=== PATIENT | male | born 1975 | race Caucasian/White ===

== ENCOUNTER 2021-08-12 10:38 | Outpatient (CLI) | payer OTHER ==
[2021-08-12 11:31] VITALS: BP 126/72
--- NOTE | 2021-08-12 11:31 | SLEEP CARE CONSULTATION ---
Information from patient questionnaire entered by Lorraine Amezquita. I have reviewed and concur with the information entered by Lorraine Amezquita. This document represents the service I personally performed and the decisions made by me, Catherine Delgado ARNP. History of Present Illness Service Date and Time: 08/12/2021 1038 Reason for Visit: New patient Chief Complaint: reports: Unrefreshed sleep, Snoring, Observed pauses in breathing, Fatigue Date of Onset: 1992 Usual bedtime: Varies due to schedule Time it takes to fall asleep: 5-10 minutes Snores at night: Yes Observed to quit breathing while asleep: Yes Sleeps alone due to snoring: Yes Number of times waking at night: 1 Reasons for waking at night: reports: Bathroom, Other (unknown reason; sometimes startled awake) Toss, Turn, or Twitch while sleeping: Yes (at beginning and end sleeping) Recalls having dreams: Yes Usually gets out of bed at: varies Feels refreshed in the morning: No Morning headache: No Sleepy or fatigued during the day: Yes Ever fallen asleep while driving: No Takes day naps: No Prior sleep studies: No Additional HPI information: I had the pleasure of seeing BARRY TSAI today regarding the possibility of him having a sleep disorder. His current complaints are unrefreshed sleep, observed pauses in breathing and fatigue. - Parasomnia Symptoms Ever been unable to move upon waking from sleep: No Walks in sleep: No Talks in sleep: No Ever acted out dreams in sleep: Yes Ever felt weak in the knees when startled or emotional: No Bothered by creepy, crawly, restless sensations in legs: Yes (occasional; from knees down, an itch/urge to move; not in 8-10 months) Problems with memory or concentration: Yes (much less since he started Testoterone supplementation) Subjective Initial [place] Sleepiness Scale score: 7 Past Medical History Past Medical History: reports: Arthritis (bilateral hips), Other (testosterone- low T; UPPP about 10 years ago) Social History The patient's occupation is a [employer]. Patient is and lives in [place]. Have you smoked in the past 12 months: No Alcohol use: Yes Alcohol amount and frequency: 2 drinks, 5-6 days/week Caffeine use: Yes Caffeine amount and frequency: 2-3 cups/day Family History Family history of sleep disordered breathing: Yes Family Hx Sleep Apnea: Mother: Snoring, Father: Snoring Allergies and Home Medications Drug allergies reviewed: Yes (NKDA) Home medication list reviewed: Yes Allergy and home medication list: Cialis Tamoxifen Review of Systems Weight loss over past 5 years: 75 Cardiovascular: denies: high blood pressure Gastrointestinal: reports: heartburn, diarrhea (occasional) Neurological: reports: gait or balance problems. denies: headaches Psychiatric: denies: Attention Deficit Hyperactivity, anxiety, depression Ear/Nose/Throat: reports: injury to nose, tonsillectomy (UPPP 10 years ago) Musculoskeletal: reports: joint pain Physical Exam Blood Pressure: 126/72 Cuff size: large Heart Rate: 86 O2 Saturation: 97 Height: 5 ft 10 in Weight: 272 lb Body Mass Index: 39.0 BMI Classification: Obese Neck circumference: 18.5 (inches) Nostrils: patent to airflow Mouth and throat: narrow oropharynx Hard palate: normal Uvula visualization: 100% Mallampati Class I Tongue: enlarged in size with teeth brown on lateral edges Tonsils: absent bilaterally Neck: normal w/o lymphadenopathy or thyromegaly Heart: regular rate and rhythm Lungs: clear bilaterally Impression and Plan 1. Suspected Obstructive Sleep Apnea-Hypopnea Syndrome, as suggested by a history of loud and irregular snoring, observed cessation of breath while asleep, unrefreshed sleep, cognitive impairment, and excessive daytime sleepiness. Narrow oropharynx and obesity are common predisposing factors for obstructive sleep apnea-hypopnea syndrome. I recommend proceeding to polysomnography to confirm the diagnosis and to assess severity. If the patient has significant sleep disordered breathing, a manual CPAP titration study will also be performed to find the optimal treatment pressure. I informed the patient of what the sleep studies involve and after some discussion, obtained agreement to proceed. The pathophysiology of obstructive sleep apnea-hypopnea syndrome was discussed with the patient and health risks of cardiovascular and cerebrovascular disease if not treated. AASM brochure for obstructive sleep a pnea-hypopnea syndrome given and reviewed. Risks of drowsy driving discussed in detail and patient advised to avoid long distance driving and to kidney puller at the first sign of drowsiness. Patient agreed to plan. * Schedule polysomnography +- manual CPAP titration study and return in 1-2 weeks after the study to discuss result and initiate therapy. * Avoid long distance driving or driving when feeling sleepy. * Avoid alcohol, sedative and muscle relaxant around bedtime. * Attempt to lose weight. * Review instructions provided by trained office staff on how to prepare for the sleep study. * Return for follow-up after sleep study completed. Counseling Topics: Weight loss health impact Visit Type: In Office Time Spent with Patient (minutes): 32 Provider Statement: I spent 100% of the Face to Face Visit with the patient with greater than 50% spent counseling the patient and coordination of care.
== END 2021-08-12 10:39 | disposition home or self-care (01) ==
LOC: SC 10:38
PROVIDERS: ATTEND Nurse Practitioner Family
DX: R06.83 Snoring (principal); R06.81 Apnea, not elsewhere classified; G47.8 Other sleep disorders; R41.89 Other symptoms and signs involving cognitive functions and awareness; G47.10 Hypersomnia, unspecified; E66.9 Obesity, unspecified; Z68.39 Body mass index [BMI] 39.0-39.9, adult
CPT/HCPCS: 99203; 99212

== ENCOUNTER 2021-08-19 14:48 | Outpatient (CLI) | payer OTHER | END 2021-08-19 14:49 | disposition home or self-care (01) | LOC: SC 14:48 | PROVIDERS: ATTEND Nurse Practitioner Family | DX: G47.33 Obstructive sleep apnea (adult) (pediatric) (principal); R09.02 Hypoxemia; R00.0 Tachycardia, unspecified | CPT/HCPCS: 95806 ==

== ENCOUNTER 2021-08-28 08:20 | Outpatient (CLI) | payer OTHER ==
--- NOTE | 2021-08-28 09:03 | SLEEP CARE CONSULTATION ---
Information from patient questionnaire entered by Jamaal Avendano. I have reviewed and concur with the information entered by Jamaal Avendano. This document represents the service I personally performed and the decisions made by me, Catherine Delgado ARNP. History of Present Illness Service Date and Time: 08/28/2021 0820 Initial [place] Sleepiness Scale score: 7 Current [place] Sleepiness Scale score: 6 Additional HPI information: BARRY TSAI returns for follow up and results of the recently performed home sleep study. I explained the pathophysiology behind obstructive sleep apnea. We then spent quite a bit of time discussing different treatment options. For mild obstructive sleep apnea, surgery and oral appliance are alternatives to nasal CPAP therapy but in moderate or severe cases, nasal CPAP is the most effective and reliable treatment. Because apnea is primarily in supine position, then positional management therapy could be effective. Methods discussed such as positioning with pillows, using a T-shirt with tennis balls in the back, and shown commercial products that have a pillow format on back to prevent supine sleep. I reviewed the impact of weight changes on sleep apnea and strongly recommended losing weight. After some discussion, the patient opted to go with the nasal CPAP therapy. Nasal autoCPAP set at 4-15 cmH20 will be ordered with rationale explained. A manual titration study will be ordered if unable to find optimal pressure with office adjustments. I explained how CPAP machine works with sample devices [employer] and [id number] and what to expect when using the machine. Using CPAP every night in order to get used to it was emphasized. Patient advised to put CPAP mask on before getting into bed so as not to fall asleep without CPAP. To assist acclimation to CPAP use, it could also be used for a short time during day while reading or watching TV. The patient was instructed to call the CPAP supplier to discuss any mechanical problem that may occur. If the mask given is uncomfortable or is difficult to keep on through the night even with adjustment, contact the CPAP supplier as many will replace with another mask style if notified before 30 days. If snoring or perceives is not getting enough air or too much air from the machine, notify this office. [facility] patient education PAP tips reviewed and given to patient. Patient counseled not drink alcohol less th an 4 hours before bedtime as it can increase snoring and apnea. Patient was cautioned about risks of drowsy driving until sleepiness symptoms resolve. Sleep Study - Results Type of Sleep Study: Home sleep study Prior sleep studies: No Polysomnography/Home Sleep Study results: Physician Impression: The quality of the study is good. The length of the study is adequate (> 240 minutes). Please also see the tabulated and graphic data. 1. Obstructive Sleep Apnea-Hypopnea (ICD-10 G47.33), severe, with an AHI of 34.6/hr and missy SaO2 of 78%. During the study, the patient had 187 apneas (187 obstructive, 0 central, 0 mixed) and 84 hypopneas. The longest episode lasted 82.5 seconds. The respiratory events occurred more frequently during supine sleep (supine AHI was 53.3 and non-supine, 8.05). 2. Hypoxemia (ICD-10 R09.02), moderate, with the lowest oxygen saturation of 78 % and 64.0 minutes with SaO2 under 90%. Baseline oxygen saturation was normal (Average oxygen saturation was 92%). 3. Tachycardia, with maximum recorded heart rate of 128 beats per minute. Allergies and Home Medications Home medication list reviewed: Yes (no changes) Review of Systems Review of systems same as previous: Yes (no changes) Physical Exam Blood Pressure: 151/91 (right) Cuff size: wrist Heart Rate: 82 O2 Saturation: 97 Height: 5 ft 10 in Weight: 276 lb Body Mass Index: 39.6 BMI Classification: Obese Impression and Plan 1. Obstructive Sleep Apnea-Hypopnea Syndrome, severe, with lowest oxygen saturation of 78%. Obviously this is the cause of the patients symptoms of unrefreshed sleep, and excessive daytime sleepiness. Positive pressure therapy could benefit his overall health and reduce risks for cardiovascular and cerebrovascular adverse events. As mentioned above, the patient will be started on nasal autoCPAP therapy with pressure set at 4-15 cmH2O. Compliance guidelines also reviewed. A copy of compliance guidelines will be given for reference at check out. Because the apnea is more severe supine, I instructed to avoid sleeping supine using pillow positioning until able to start CPAP use. 2. Hypoxemia, moderate, with the lowest oxygen saturation of 78 % and 64.0 minutes with SaO2 under 90%. His baseline oxygen saturation was normal with an average oxygen saturation of 92%. 3. Tachycardia noted on study with a maximum recorded heart rate of 128 beats per minute. Patient advised to follow up with PCP for elevated heart rate. * Nasal auto CPAP therapy, pressure at 4-15 cm H2O. * Follow up with PCP for elevated heart rate * Attempt to lose weight. * Avoid alcohol consumption near bedtime. * Avoid supine sleep until using CPAP. * The patient is again cautioned about driving until sleepiness completely resolves. * Return one month after CPAP obtained. I will assess response to therapy and compliance at that time. Counseling Topics: Weight loss health impact Visit Type: In Office Time Spent with Patient (minutes): 24 Provider Statement: I spent 100% of the Face to Face Visit with the patient with greater than 50% spent counseling the patient and coordination of care.
[2021-08-28 09:04] VITALS: BP 151/91
== END 2021-08-28 08:21 | disposition home or self-care (01) ==
LOC: SC 08:20
PROVIDERS: ATTEND Nurse Practitioner Family
DX: G47.33 Obstructive sleep apnea (adult) (pediatric) (principal); R09.02 Hypoxemia; R00.0 Tachycardia, unspecified; E66.9 Obesity, unspecified; Z68.39 Body mass index [BMI] 39.0-39.9, adult
CPT/HCPCS: 99212; 99213

== ENCOUNTER 2021-10-30 08:00 | Outpatient (CLI) | payer OTHER | END 2021-10-30 23:59 | disposition home or self-care (01) | LOC: LAB 08:00 | PROVIDERS: ATTEND Physician Assistant | DX: U07.1 COVID-19 (principal) ==